=== PATIENT | male | born 1935 | race Caucasian/White ===

== ENCOUNTER 2019-04-08 16:00 | Observation (INO) ==
[2019-04-08 18:10] LABS: Folate > 24.0 NG/ML (5.4-24.0); Vitamin B12 > 2000 PG/ML (211-911)
[2019-04-08] MEDS ORDERED: ACETAMINOPHEN 500 MG TABLET PO PRN (19:30)
[2019-04-08 19:42] LABS: Basophils # 0.1 10*3/uL (0.0-0.2); Basophils % 0.7 % (0.0-0.8); Eosinophils # 0.1 10*3/uL (0.0-0.87); Eosinophils % 1.4 % (0.00-10.9); Hematocrit 39.8 VOL% (42.0-52.0); Hemoglobin 13.2 GM/DL (14.0-18.0); Immature Granulocytes % 0.3 %; Immature Granulocytes Absolute 0.03 #; Lymphocytes # 2.9 10*3/uL (1.4-4.0); Lymphocytes % 31.8 % (21.2-54.2); Mean Corpuscular HGB Conc 33.2 GM/DL (32-36); Monocytes % 7.8 % (1.7-12.7); Platelet Count 325 T/CUMM (130-400); Red Blood Count 4.28 MC/CUMM (3.8-5.5); Red Cell Distribution Width 13.3 % (9.3-17.3)
[2019-04-08 20:13] LABS: Albumin 3.6 G/DL (3.4-5.0); Bilirubin,Total 0.4 MG/DL (0.2-1.0); Calcium 8.8 MG/DL (8.5-10.1); Osmolality,Calculated 272.1 MOS/KG (273-304); Total Protein 7.1 G/DL (6.4-8.3)
[2019-04-09] MEDS ORDERED: ACETAMINOPHEN 325 MG TABLET PO PRN (08:43)
[2019-04-09] MEDS ORDERED: DOCUSATE SODIUM 100 MG CAPSULE PO PRN (08:43)
[2019-04-09] MEDS ORDERED: ONDANSETRON 4 MG/2 ML VIAL IV PRN (08:45)
[2019-04-09] MEDS ORDERED: ENOXAPARIN 40 MG/0.4 ML SYRINGE SUBCUT SCH (09:00)
[2019-04-09] MEDS ORDERED: SODIUM CHLORIDE 0.9% 1,000 ML IV SCH (09:00)
[2019-04-09] MEDS ORDERED: PANTOPRAZOLE 40 MG TABLET PO SCH (09:00)
[2019-04-09] MEDS ORDERED: MECLIZINE 25 MG TABLET PO PRN (09:02)
[2019-04-09] MEDS ORDERED: CARBIDOPA/LEVODOPA 25-100 MG TABLET PO SCH (15:00)
[2019-04-09 15:35] VITALS: BP 125/76
== END 2019-04-09 16:01 | disposition home or self-care (01) ==
LOC: N.4E 16:00 → INTOOBSV 16:00
PROVIDERS: ADMIT Family Medicine; ATTEND Family Medicine